=== PATIENT | male | born 1955 ===

== ENCOUNTER 2018-10-18 10:05 | Inpatient (IN) | payer BC ==
[2018-10-18 10:06] VITALS: BMI 25.8
[2018-10-18 10:28] LABS: BASO % 0.1 % (0.0-2.0); EOS # 0.1 K/uL (0.0-0.7); EOS % 1.4 % (0.0-4.0); LYMPH # 1.3 K/uL (1.0-4.3); LYMPH % 17.4 % (20.0-40.0); MEAN CELL VOLUME 96.5 fL (80.0-94.0); MEAN CORPUSCULAR HEMOGLOBIN 32.2 pg (27.0-31.0); MEAN CORPUSCULAR HGB CONC 33.4 g/dL (33.0-37.0); MONO # 0.6 K/uL (0.0-0.8); MONO % 7.9 % (0.0-10.0); NEUT # 5.6 K/uL (1.8-7.0); NEUT % 73.2 % (50.0-75.0); RBC 3.72 Mil/uL (4.40-5.90); RED CELL DISTRIBUTION WIDTH 16.1 % (11.5-14.5); WHITE BLOOD COUNT 7.6 K/uL (4.8-10.8)
[2018-10-18 10:37] LABS: INR 1.1; PROTHROMBIN TIME 11.7 SECONDS (9.7-12.2)
--- NOTE | 2018-10-18 10:40 | C.PDOC ---
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 Patient states he does not recall falling but currently has right maxillary hematoma which he states was not there in the morning. Patient currently Alert and Oriented x3 and complaints of back pain. Denies chest pain, shortness of breath, or any other complaints. Time Seen by Provider: 10/18/18 10:14 Chief Complaint (Nursing): Syncope History Per: EMS History/Exam Limitations: no limitations Onset/Duration Of Symptoms: Hrs Current Symptoms Are (Timing): Gone Associated Symptoms Preceding Syncopal Episode: No Predromal Symptoms (Sudden Onset) Seizure Or Post-ictal Symptoms: None Fall Associated With With Symptoms: Positive Injury (right maxillary hematoma) Recent travel outside of the [place]: No - Symptoms Of CVA Recent Aspirin Use: Unknown Current Coumadin Use?: Unknown Past Medical History Reviewed: Historical Data, Nursing Documentation, Vital Signs - Medical History PMH: Anxiety, Depression, Gastritis, HTN Surgical History: No Surg Hx Family History: States: Unknown Family Hx - Social History Hx Alcohol Use: Yes (denies) Hx Substance Use: Yes (xanax and possibly percocet) - Immunization History Hx Tetanus Toxoid Vaccination: No Hx Influenza Vaccination: No Hx Pneumococcal Vaccination: No Review Of Systems Cardiovascular: Negative for: Chest Pain Respiratory: Negative for: Shortness of Breath Physical Exam - Physical Exam Additional Physical Exam Comments: Constitutional: No acute distress. Head: Right maxillary hematoma. Eyes: PERRL. ENT: Moist mucous membranes. Neck: Supple. No mid-line tenderness. Cardiovascular: Regular rate. Radial pulse 2+ bilaterally. Chest: No tenderness. Respiratory: Clear to auscultation bilaterally. GI: Soft. Nontender. Nondistended. Back: No midline tenderness. Musculoskeletal: No tenderness or swelling of extremities. Skin: No rash. Neurologic: Alert, no focal deficit. ED Course And Treatment - Laboratory Results Result Diagrams: 10/18/18 10:21 10/18/18 10:21 - CT Scan/US Head CT Other Rad Studies (CT/US): Read By Radiologist, Radiology Report Reviewed CT/US Interpretation: Date of service: 10/18/2018. PROCEDURE: CT HEAD WITHOUT CONTRAST. HISTORY: fall, syncope. COMPARISON: 07/04/2016. TECHNIQUE: Axial computed tomography images were obtained through the head/brain without intravenous contrast. Radiation dose: Total exam DLP = 1079.24 mGy-cm. This CT exam was performed using one or more of the following dose reduction techniques: Automated exposure control, adjustment of the mA and/or kV according to patient size, and/or use of iterative reconstruction technique. FINDINGS: HEMORRHAGE: No intracranial hemorrhage. BRAIN: Mon-white matter differentiation is preserved. There is no mass, mass effect or abnormal extra- axial fluid collection. There is no territorial infarction. The midline sagittal structures are normal. VENTRICLES: There is mild age-related global parenchymal volume loss and proportionate enlargement of the ventricles and cortical sulci. CALVARIUM: There is no calvarial fracture or extracranial soft tissue swelling. PARANASAL SINUSES: There is fluid in both maxillary sinuses. There is moderate mucoperiosteal thickening in the anterior ethmoid air cells. The remaining included paranasal sinuses are clear. MASTOID AIR CELLS: Predominantly clear. OTHER FINDINGS: None. IMPRESSION: No acute intracranial abnormality. Fluid in both maxillary sinuses may represent acute sinusitis in the appropriate clinical setting. Orbit CT Other Rad Studies (CT/US): Read By Radiologist, Radiology Report Reviewed CT/US Interpretation: Date of service: 10/18/2018. PROCEDURE: CT MAXILLOFACIAL BONES WITHOUT CONTRAST. HISTORY: fall, facial injury. COMP ARISON: None available. TECHNIQUE: Contiguous axial CT images of the maxillofacial bones were obtained. Coronal and sagittal reformats were generated. Radiation dose: Total exam DLP = 1020.01 mGy-cm. This CT exam was performed using one or more of the following dose reduction techniques: Auto mated exposure control, adjustment of the mA and/or kV according to patient size, and/or use of iterative reconstruction technique. FINDINGS: NASAL BONES: Unremarkable. ORBITS: Unremarkable. PARANASAL SINUSES/ MASTOIDS: Extensive bilateral maxillary and ethmoid air cell mucoperiosteal thickening. MAXILLA: Unremarkable. MANDIBLE/ TEMPOROMANDIBULAR JOINTS: Unremarkable. SKULL BASE: Unremarkable. TEMPORAL BONES: Middle ears and mastoid grossly unremarkable. OTHER FINDINGS: None. IMPRESSION: No fracture. Medical Decision Making Medical Decision Making: Plan: * Blood bank * CT Head * CT Orbits/Facials * EKG * Blood work * Urinalysis EKG: * Normal Sinus Rhythm at 92 bpm * No ST/T wave changes CK elevated. IVF administered. Patient also continues to be drowsy, narcan administered, patient awoke immediately. Dr. Klein accepts patient to his service. Disposition - Disposition Disposition: HOSPITALIZED Disposition Time: 11:25 Condition: GUARDED Forms: [facility] (Czech) - Clinical Impression Clinical Impression: Syncope, Rhabdomyolysis - Scribe Statement The provider has reviewed the documentation as recorded by the Scribe Ammy Castellanos All medical record entries made by the Scribe were at my direction and personally dictated by me. I have reviewed the chart and agree that the record accurately reflects my personal performance of the history, physical exam, medical decision making, and the department course for this patient. I have also personally directed, reviewed, and agree with the discharge instructions and disposition.
[2018-10-18 10:43] LABS: ALB/GLOB RATIO 1.3 (1.0-2.1); ALBUMIN 4.1 g/dL (3.5-5.0); ALT/SGPT 78 U/L (21-72); AST/SGOT 290 U/L (17-59); BLOOD UREA NITROGEN 25 mg/dL (9-20); CALCIUM 9.3 mg/dl (8.6-10.4); GFR NON-AFRICAN AMERICAN 56
[2018-10-18 10:53] LABS: CK-MB 195 ng/mL (0.0-3.38)
--- NOTE | 2018-10-18 11:09 | CT ---
Date of service: 10/18/2018 PROCEDURE: CT HEAD WITHOUT CONTRAST. HISTORY: fall, syncope COMPARISON: 07/04/2016. TECHNIQUE: Axial computed tomography images were obtained through the head/brain without intravenous contrast. Radiation dose: Total exam DLP = 1079.24 mGy-cm. This CT exam was performed using one or more of the following dose reduction techniques: Automated exposure control, adjustment of the mA and/or kV according to patient size, and/or use of iterative reconstruction technique. FINDINGS: HEMORRHAGE: No intracranial hemorrhage. BRAIN: Mon-white matter differentiation is preserved. There is no mass, mass effect or abnormal extra-axial fluid collection. There is no territorial infarction. The midline sagittal structures are normal. VENTRICLES: There is mild age-related global parenchymal volume loss and proportionate enlargement of the ventricles and cortical sulci. CALVARIUM: There is no calvarial fracture or extracranial soft tissue swelling. PARANASAL SINUSES: There is fluid in both maxillary sinuses. There is moderate mucoperiosteal thickening in the anterior ethmoid air cells. The remaining included paranasal sinuses are clear. MASTOID AIR CELLS: Predominantly clear. OTHER FINDINGS: None. IMPRESSION: No acute intracranial abnormality. Fluid in both maxillary sinuses may represent acute sinusitis in the appropriate clinical setting.
[2018-10-18 11:10] LABS: SQUAMOUS EPITHIAL < 1 /hpf (0-5); URINE BACTERIA RARE (<OCC); URINE BILIRUBIN 2+ (NEGATIVE); URINE CLARITY Clear (Clear); URINE COLOR Amber (YELLOW); URINE GLUCOSE (UA) NORMAL (Normal); URINE LEUKOCYTE ESTERASE NEG Leu/uL (Negative); URINE PROTEIN 1+ mg/dL (NEGATIVE)
[2018-10-18 11:12] LABS: URINE BLOOD 1+ (NEGATIVE)
--- NOTE | 2018-10-18 11:20 | CT ---
Date of service: 10/18/2018 PROCEDURE: CT MAXILLOFACIAL BONES WITHOUT CONTRAST HISTORY: fall, facial injury COMPARISON: None available. TECHNIQUE: Contiguous axial CT images of the maxillofacial bones were obtained. Coronal and sagittal reformats were generated. Radiation dose: Total exam DLP = 1020.01 mGy-cm. This CT exam was performed using one or more of the following dose reduction techniques: Automated exposure control, adjustment of the mA and/or kV according to patient size, and/or use of iterative reconstruction technique. FINDINGS: NASAL BONES: Unremarkable. ORBITS: Unremarkable. PARANASAL SINUSES/ MASTOIDS: Extensive bilateral maxillary and ethmoid air cell mucoperiosteal thickening. MAXILLA: Unremarkable. MANDIBLE/ TEMPOROMANDIBULAR JOINTS: Unremarkable. SKULL BASE: Unremarkable. TEMPORAL BONES: Middle ears and mastoid grossly unremarkable. OTHER FINDINGS: None. IMPRESSION: No fracture.
[2018-10-18 11:32] LABS: BARBITURATES, UR NEGATIVE (NEGATIVE); BENZODIAZEPINES, UR NEGATIVE (NEGATIVE); PHENCYCLIDINE, UR NEGATIVE (NEGATIVE)
[2018-10-18 11:34] LABS: OPIATES, UR POSITIVE (NEGATIVE)
[2018-10-18] MEDS ORDERED: Sodium Chloride 0.9% 1,000 ML IV STA (12:01)
[2018-10-18] MEDS ORDERED: Naloxone 0.4 mg/ml Inj (Adult) ONE (12:26)
[2018-10-18] MEDS ORDERED: Naloxone 0.4 mg/ml Inj (Adult) IVP ONE (12:27)
[2018-10-18] MEDS: Sodium Chloride 0.45% 1,000 ML IV SCH ×2 (15:45→22:39)
[2018-10-18] MEDS: Multiple Vitamins Tab PO SCH (17:01)
[2018-10-18] MEDS: Metoprolol Succinate 12.5 mg XL Tab PO SCH (18:21)
[2018-10-19] MEDS: Sodium Chloride 0.45% 1,000 ML IV SCH (06:58)
[2018-10-19 08:03] LABS: ALB/GLOB RATIO 1.2 (1.0-2.1); ALBUMIN 3.4 g/dL (3.5-5.0); ALT/SGPT 82 U/L (21-72); AST/SGOT 258 U/L (17-59); BLOOD UREA NITROGEN 13 mg/dL (9-20); CALCIUM 8.9 mg/dl (8.6-10.4); GFR NON-AFRICAN AMERICAN > 60
[2018-10-19 08:42] VITALS: BP 155/69; RESP 18; TEMP 97.9; O2SAT 97
[2018-10-19 09:13] VITALS: PULSE 83
[2018-10-19] MEDS ORDERED: Pantoprazole 40 mg EC Tab PO SCH (10:00)
[2018-10-19] MEDS: Multiple Vitamins Tab PO SCH (10:43)
[2018-10-19] MEDS: Metoprolol Succinate 12.5 mg XL Tab PO SCH (10:44)
--- NOTE | 2018-10-19 18:11 | HP ---
HISTORY OF PRESENT ILLNESS: This is a 63-year-old male with history of hypertension and hypercholesterolemia who was brought to emergency room after a fall with trauma of the head. The patient had a witnessed syncope at work. The patient was awake at the time of this encounter and he stated that he was feeling back pain and he was given some narcotic medication by a friend for the back pain. The patient was found to have for alcohol. The patient did not have any previous history of seizure. The patient was evaluated in emergency room and CAT scan of the head and the orbit was done and the impressions were no fracture of the orbit and the CAT scan of the head also was done and the impression was no acute intracranial abnormalities. The patient was also found to have a CPK of [phone]. The patient also was found to have elevated liver enzymes with AST 290 and ALT 78. Other review of system is negative. ALLERGIES: NO KNOWN ALLERGIES. MEDICATIONS: Reviewed as per MAR and ordered. SOCIAL HISTORY: Smoker. Denies EtOH or substance abuse. FAMILY HISTORY: Not contributory. PAST MEDICAL HISTORY: As above. Hypertension, hypercholesterolemia, and degenerative spine disease. PHYSICAL EXAMINATION: GENERAL: The patient was not in any cardiopulmonary distress at the time of this examination. VITAL SIGNS: Blood pressure 143/75, temperature 98.2, respiratory rate 14, and pulse 89. HEENT: Contusion of the right side of the forehead and the orbital area, but adequate visual acuity, NECK: Supple. No JVD. No carotid bruit. No lymph node. No thyromegaly. CHEST AND LUNGS: Bilateral symmetrical expansion. Good air exchange. No rales, no rhonchi. CARDIOVASCULAR: PMI not localized. S1 and S2. No additional sounds. ABDOMEN: Normoactive bowel sounds. No tenderness. No organomegaly. No masses. EXTREMITIES: No cyanosis, no clubbing, no edema. CENTRAL NERVOUS SYSTEM: Alert, awake, oriented x2 and moves all extremities equally. ASSESSMENT: 1. Witnessed syncope. 2. Rhabdomyolysis. 3. Possible substance abuse as opiate is positive in the urine and the patient used narcotic medications from a friend to alleviate his back pain. PLAN: IV fluids. Neuro check every 4 hours. Neurology evaluation. Resume antihypertensive medications and diet as tolerated. Monitor electrolytes. Same MD [facility] # [id number]
[2018-10-20] MEDS ORDERED: Influenza Vaccine 60 MCG/0.5 ML SYR (3 yr & up) IM ONE (14:00)
[2018-10-20] MEDS ORDERED: Pneumococcal 23-Valent Vaccine IM ONE (14:00)
--- NOTE | 2018-10-21 09:35 | CARD ---
APPROVED REPORT Date of service: 10/18/2018 EKG Measurement Heart [id number] <Conclusion> Normal sinus rhythm Normal ECG
== END 2018-10-19 11:40 | disposition left against medical advice (07) | DRG 558 ==
LOC: C.ER 10:05 → C.9E 12:53 → C.6T 13:54
PROVIDERS: ADMIT Internal Medicine; ATTEND Internal Medicine
DX: M62.82 Rhabdomyolysis (principal); I10 Essential (primary) hypertension; E78.00 Pure hypercholesterolemia, unspecified; W19.XXXA Unspecified fall, initial encounter; F17.200 Nicotine dependence, unspecified, uncomplicated; S00.83XA Contusion of other part of head, initial encounter